=== PATIENT | female | born 1995 ===

== ENCOUNTER 2018-04-11 11:01 | Emergency (ER) | payer MEDICAID ==
[~2018-04-11] VITALS: Ht 157.5 cm; Wt 56.8 kg
[2018-04-11 11:19] VITALS: BP 124/73; Ht 157.5 cm; Wt 56.8 kg
== END 2018-04-11 16:00 | disposition left against medical advice (07) ==
LOC: D.ER 11:01
DX: H92.03 Otalgia, bilateral (principal)